=== PATIENT | male | born 1990 | race Caucasian/White ===

== ENCOUNTER 2016-12-19 21:05 | Emergency (ER) | payer OTHER ==
[~2016-12-19] VITALS: Ht 175.3 cm; Wt 72.7 kg
[~2016-12-19 21:05] MED LIST: LACT1CAP65 PO
[2016-12-19 21:17] VITALS: BP 143/67; PULSE 83; RESP 18; O2SAT 100
--- NOTE | 2016-12-19 21:39 | ED.REPORT ---
HPI-Chest Pain Under 40 Date of Service December 19, 2016 ED Provider: Artis Ward MD The pt is a 25 y/o male w/ a hx of arthritis presenting to the ED complaining of chest pain onset this morning. He is also experiencing SOB, fatigue, and nausea. The pt has experienced chest pain in the past but no SOB. He also describes waking up in the night feeling short of breath and needing air. The pt reports his father having a "something" wrong with his heart and his son having a heart murmur. Denies cough, wheezing or tightness in chest, productive cough, fever, chills, SOB w/ exertion, or having a flu recently. He reports smoking while he was in the but does not currently. Nursing Notes Stated Complaint: CP,SOB Chief Complaint: Chest Pain Nursing Notes Reviewed: Yes Allergies: Coded Allergies: No Known Drug Allergies (Verified Allergy, Unknown, 03/13/16) Scheduled Omeprazole (Omeprazole) 20 Mg Tablet.dr 20 MG PO BID Scheduled PRN Lactobacillus Acidophilus (Probiotic) 1 Each Capsule 1 EACH PO DAILY PRN PRN PRN General Time Seen by MD: 21:39 Chief Complaint Chest pain Hx Obtained From: Patient Arrived By: Walk-in Sudden in Onset?: Yes Onset Occurred: 13 - 16 hours ago Recent Healthcare: No recent doctor visit, No recent hospitalization Similar Sx Previous: Yes Past Medical History Past Medical History Arthritis Depression Anxiety Past Surgical History Reports: Tonsillectomy Smoking History Former Smoker Ambulatory Status Independent Review of Systems Denies increased SOB w/ exertion, chest tightness Constitutional: Reports: Fatigue, Denies: Chills, Fever Respiratory: Reports: Shortness of breath, Denies: Non-productive cough, Prod cough, clear, Wheezing Cardiovascular: Reports: Chest pain Complete sys rev & neg: except as marked. Physical Exam Initial Vital Signs Vital Signs (First) Date Time Temp Pulse Resp B/P Pulse Ox O2 Delivery O2 Flow Rate FiO2 12/19/16 21:17 36.3 83 18 143/67 100 Room Air Initial VS: Reviewed Head / Eyes: Atraumatic, Normocephalic, PERRL ENT: Mucous membranes moist, Conjunctiva normal, No scleral icterus Neck: Supple, Non-tender, Full range of motion Abdomen / GI: Soft, Non-tender, No guarding, No rebound, No distention Back: No CVA tenderness Skin: Warm, Dry, No cyanosis Neurologic: Alert, Oriented, Nonfocal Psychiatric: Mood/affect normal, Behavior normal, Normal thought content General/Constitutional: Awake, Alert, Well appearing Respiratory / Chest: Breath sounds NL, Breath sounds = bilat, No respiratory distress, No rales, No rhonchi, No wheezing, No chest tenderness Cardiovascular: Heart rate NL, Regular rhythm, Heart sounds NL, No murmurs, Peripheral circulation NL, Pulses = bilaterally, No gross BP differential Interpretation & Diagnostics Lab Results Interpretation Result Diagram: 12/19/16214912/19/162149 Test 12/19/16 21:50 White Blood Count 7.8th/mm3 (3.8-10.1) Red Blood Count 5.42mil/mm3 (4.40-5.80) Hemoglobin 15.0g/dL (13.8-17.2) Hematocrit 40.9% (41.0-50.0) Mean Corpuscular Volume 75.5fL (81-100) Mean Corpuscular Hemoglobin 27.7pg (27.0-35.0) Mean Corpuscular Hemoglobin Concent 36.7% (32.0-37.0) Red Cell Distribution Width 13.0% (12.3-15.4) Platelet Count 251bil/L (150-400) Neutrophils (%) (Auto) 64.4% (40-74) Lymphocytes (%) (Auto) 25.6% (14-46) Monocytes (%) (Auto) 8.2% (4-12) Eosinophils (%) (Auto) 1.3% (0-5) Basophils (%) (Auto) 0.4% (0-3) Erythrocyte Sedimentation Rate 1mm/hr (0-15) Sodium Level 139mEq/L (134-144) Potassium Level 4.1mEq/L (3.5-5.2) Chloride Level 101mEq/L (97-108) Carbon Dioxide Level 26mmol/L (18-29) Blood Urea Nitrogen 15mg/dL (6-20) Creatinine 0.94mg/dL (0.76-1.27) Estimat Glomerular Filtration Rate 104mL/min (>59) Glucose Level 98mg/dL (60-99) Calcium Level 9.8mg/dL (8.5-10.1) Magnesium Level 2.2mg/dL (1.6-2.6) Total Bilirubin 0.4mg/dL (0.0-1.2) Aspartate Amino Transf (AST/SGOT) 24U/L (0-50) Alanine Aminotransferase (ALT/SGPT) 21U/L (0-44) Alkaline Phosphatase 67U/L (25-150) Troponin T 0.010ug/L (0.0-0.011) Total Protein 8.0g/dL (6.4-8.4) Albumin 4.6g/dL (3.4-5.0) Hold Robertson Top Tube Received (Received) ECG Interpretation ECG Interpretation: Rate 70 Normal sinus rhythm Time: 21:50 Interpreted by: ED physician X-Ray Chest Interpretation Chest Xray Interpretation: Chest X-Ray: Impression: Normal Interpretation / Wet Read by: Wet read ED physician Re-Eval/Medical Decision Med Decision/Clinical Course 45-year-old with no risk factors for significant disease presents with some intermittent shortness of breath and some chest pain tonight. EKG is unremarkable. No particular effect noted with bronchodilator. Statistically likely to be GERD related. No indication of risk factors for pulmonary embolus. He is perk negative. Discharged in stable condition for follow-up with PCP. Re-Evaluation/Progress : Time of Eval: 22:47 Re-Evaluation/Progress Note: Pt rechecked. Informed pt of plan for treatment. Pt understands and agrees with plan for treatment. F/U instructions and RTER warnings given. All questions addressed. Counseled Regarding: Diagnosis, Lab results, Need for follow-up, When/why to return to ED Discharge & Departure Shift Change Sign-Out Response to Therapy: Improved Primary Impression: Non-cardiac chest pain Disposition: Home Discharge Condition All VS Reviewed: Yes Condition: Stable Additional Instructions: We do not find any evidence of cardiac disease. You have no risk factors for pulmonary embolus or clotting. Statistically, the commonest cause for such pain at your age is esophageal spasm and reflux. Begin omeprazole twice daily for a week, then may back off to one tablet daily. Return promptly if symptoms worsen, if you develop any new symptoms such as shortness of breath, productive cough, or any other new symptoms of concern. Follow-up with your doctor. Referrals: NOPMARTY (PCP) Barry Seo MD (Family) Scribe Attestation Portions of this note were transcribed by Edson Roach. I, Dr. Ward personally performed the history, physical exam and medical decision-making; I reviewed and confirmed the accuracy of the information in the transcribed note. Signed by : Bridger Moerno, 12/19/16 and 2301. copies to: Barry Seo MD, Christopher W MD December 19, 2016 21:39 Edson Roach December 19, 2016 22:45
[2016-12-19] MEDS ORDERED: Ondansetron 2 mg/mL 2 mL Inj IVPUSH ONE (21:50)
[2016-12-19] MEDS ORDERED: Pantoprazole 4 mg/mL 10 mL Inj IVPUSH ONE (21:50)
[2016-12-19] MEDS ORDERED: Albuterol-Ipratropium 3 mL Inhalation Solution NEB ONE (21:50)
[2016-12-19 21:58] LABS: BASOPHILS % (AUTO) 0.4 % (0-3); EOSINOPHILS % (AUTO) 1.3 % (0-5); MONOCYTES % (AUTO) 8.2 % (4-12); Mean Corpuscular Hemoglobin 27.7 pg (27.0-35.0); Mean Corpuscular Volume 75.5 fL (81-100); NEUTROPHILS % (AUTO) 64.4 % (40-74); Platelet Count 251 bil/L (150-400)
[2016-12-19 22:20] LABS: TROPONIN T 0.01 ug/L (0.0-0.011)
[2016-12-19 22:30] VITALS: BP 111/55; PULSE 73; RESP 17; O2SAT 98
[2016-12-19 22:31] LABS: Magnesium 2.2 mg/dL (1.6-2.6)
[2016-12-19 22:34] VITALS: PULSE 74; RESP 18; O2SAT 100
[2016-12-19 22:34] LABS: ERYTHROCYTE SEDIMENTATION RATE 1 mm/hr (0-15)
[2016-12-19] MEDS ORDERED: OMEP20TA86 PO (22:55)
[2016-12-19 23:04] VITALS: BP 111/55; PULSE 92; RESP 15; O2SAT 98
[2016-12-19 23:09] VITALS: BP 111/55; PULSE 92; RESP 15; O2SAT 98
--- NOTE | 2016-12-20 07:50 | DRSVH ---
PROCEDURE: X-RAY CHEST, TWO VIEWS ([id number]) INDICATIONS: chest pain TECHNIQUE: 2 views of the chest were acquired. COMPARISON: [facility], , CHEST 3 VIEW, 10/25/2008, 14:48. FINDINGS: Surgical changes and devices: None. Lungs and pleura: No pleural effusions or pneumothorax. Lungs are clear. Mediastinum: Mediastinal contours are normal. Heart size is normal. Bones and chest wall: No suspicious bony abnormalities. Soft tissues appear unremarkable. IMPRESSION: No acute process. Dictated by: Stephany Ford M.D. on 12/20/2016 at 7:48 Approved by: Stephany Ford M.D. on 12/20/2016 at 7:49
== END 2016-12-19 23:11 | disposition home or self-care (01) ==
LOC: SED 21:05
DX: R07.89 Other chest pain (principal); R06.02 Shortness of breath; R53.83 Other fatigue; R11.0 Nausea; F32.9 Major depressive disorder, single episode, unspecified; Z87.891 Personal history of nicotine dependence
CPT/HCPCS: 36415; 71020; 80053; 83735; 84484; 85025; 85651; 93005; 94640; 96372; 96374; 96375; 99285; J1885; J2405; J7620